=== PATIENT | female | born 1985 | race Caucasian/White ===

== ENCOUNTER 2018-04-25 15:18 | Emergency (ER) | payer MEDICAID ==
[2018-04-25] MEDS ORDERED: 0.9 % SODIUM CHLORIDE 1,000 ML BAG IV ONE (15:27)
--- NOTE | 2018-04-25 15:35 | Emergency Department Record ---
History of Present Illness - General Chief complaint: ENT Stated complaint: DIFFICULTY SWOLLOWING Time Seen by Provider: 04/25/18 15:27 Source: Patient Mode of Arrival: Ambulatory Limitations: No limitations - History of Present Illness Initial comments: 33 yo female presents with a sensation of difficulty with swallowing for about 5 months. The onset has been gradual but progressive. She states over the five months it started with trouble with solid foods and now she feels like she can not swallow solids. She can swallow liquids. No swelling or mass. No fevers. She has a history in the past of Graves Disease that was treated with radiation two years ago. She did not have any issue then after treatment. No history of a prior scope. No history of cancers or tobacco use. No ENT history. She reports her PCP did and US of the neck that only should a nodule that was not a concern. MD complaint: Difficulty swallowing -: Month(s) (5) Location: Throat Severity: Moderate Quality: Other Consistency: Constant Improves with: None Worsens with: Eating - Related Data Home Medications Medication Instructions Recorded Confirmed Last Taken Levothyroxine Sodium [Synthroid] 100 mcg PO DAILY 04/25/18 04/25/18 04/25/18 100 mcg Allergies Allergy/AdvReac Type Severity Reaction Status Date / Time latex Allergy Mild RASH Verified 04/25/18 15:30 Review of Systems Constitutional: Denies: Chills, Fever, Weakness Eyes: Denies: Eye discharge, Eye pain, Vision change ENT: Denies: Congestion, Throat pain Respiratory: Denies: Cough, Dyspnea, Wheezes Cardiovascular: Denies: Chest pain, Palpitations, Syncope Endocrine: Denies: Fatigue Gastrointestinal: Reports: Nausea Genitourinary: Denies: Abnormal menses, Dysuria, Urgency Musculoskeletal: Denies: Arthralgia, Back pain, Myalgia Skin: Denies: Bruising, Change in color, Rash Neurological: Denies: Headache Psychiatric: Denies: Anxiety Hematological/Lymphatic: Denies: Easy bleeding, Easy bruising, Swollen glands Past Medical History - PURCHASER History : 3 Para: 4 Physical Exam - General General Appearance: Alert, Oriented x3, Cooperative, No acute distress Limitations: No limitations - Head Head exam: Atraumatic, Normal inspection - Eye Eye exam: Normal appearance, PERRL. negative: Conjunctival injection, Scleral icterus - ENT ENT exam: Normal exam, Mucous membranes moist, Normal orophraynx. negative: Mucous membranes dry Ear exam: Normal external inspection Nasal Exam: Normal inspection Mouth exam: Normal external inspection, Tongue normal, Other (clear voice). negative: Drooling, Muffled voice, Tongue elevation, Trismus Teeth exam: Normal inspection Throat exam: Normal inspection. negative: Tonsillar erythema, Tonsillomegaly, Tonsillar exudate, L peritonsillar mass - Neck Neck exam: negative: Lymphadenopathy, Tenderness - Respiratory Respiratory exam: Normal lung sounds bilaterally. negative: Respiratory distress - Cardiovascular Cardiovascular Exam: Regular rate, Normal rhythm, Normal heart sounds - GI/Abdominal GI/Abdominal exam: Soft. negative: Tenderness - Rectal Rectal exam: Deferred - exam: Deferred - Neurological Neurological exam: Alert, Oriented X3 - Psychiatric Psychiatric exam: Normal affect, Normal mood - Skin Skin exam: Dry, Intact, Normal color, Warm Course Vital Signs 04/25/18 15:23 Temperature 97.9 F Pulse Rate [ 140 H Pulse Ox Probe] Respiratory 22 Rate Blood Pressure 141/89 [Left Arm] Pulse Ox 99 - Reevaluation(s) Reevaluation #1: 04/25/18 16:03 HR improved to 94 without any intervention. The patient was anxious and tearful on arrival. She is relaxed and calm currently. 04/25/18 16:08 The CBC and the UCG is negative 04/25/18 16:25 BMP reviewed. Glucose 181. Non fasting. 04/25/18 17:[address] of the neck soft tissues is negative. No mass or signs of space occupying mass. Atrophic thyroid The patient was informed of the findings. She is stable for DC. She is instructed to call her PCP tomorrow to assist in arranging her planned GI follow up. She was instructed to continue with a soft mechanical diet in the meantime. Medical Decision Making - Lab Data Result diagrams: 04/25/18 15:55 04/25/18 15:55 Disposition Disposition: Discharge Clinical Impression: Dysphagia Qualifiers: Dysphagia type: unspecified Qualified Code(s): R13.10 - Dysphagia, unspecified Disposition: Home, Self-Care Condition: (1) Good Instructions: Dysphagia (ED) Additional Instructions: Call your family doctor tomorrow for close follow up of your ongoing symptoms Be seen immediately if worse or any new concerns Avoid solid foods that require a lot of chewing like meat or tough foods Forms: Patient Portal Access Time of Disposition: 17:16 Quality - Quality Measures Quality Measures: N/A - Blood Pressure Screening Does Patient Have Any of the Following: No Blood Pressure Classification: Normal BP Reading Systolic Measurement: 106 Diastolic Measurement: 68 Screening for High Blood Pressure: < Normal BP, F/U Not Required > [[id number]]
[2018-04-25 16:01] LABS: BASO % 0.1 % (0-6); EOS % 0.3 % (0-6); GRAN % 79.1 % (47-80); HEMATOCRIT 43.5 % (35.0-47.0); HEMOGLOBIN 14.9 gm/dl (11.6-16.0); LYMPH % 15.2 % (16-45); MEAN CELL VOLUME 90.4 fl (81-97); MEAN CORPUSCULAR HGB CONC 34.3 g/dl (32-36); MEAN PLATELET VOLUME 8.9 fl (7.4-10.4); MONO % 5.3 % (0-9); PLATELET COUNT 301 K/uL (130-400); RED BLOOD COUNT 4.81 M/uL (3.80-5.40); RED CELL DISTRIBUTION WIDTH 11.8 % (11.5-14.5); WHITE BLOOD COUNT W/O DIFF 6.9 K/uL (4.2-12.2)
[2018-04-25 16:16] LABS: BLOOD UREA NITROGEN 10 mg/dL (6-20); CREATININE 0.9 mg/dL (0.5-0.9); EST GLOMERULAR FILTRATION RATE > 60 mL/min
[2018-04-25 16:19] LABS: GLUCOSE,RANDOM 181 mg/dL (74-109)
--- NOTE | 2018-04-27 08:59 | CT SCAN REPORT ---
EXAM: CT SCAN OF THE NECK WITH CONTRAST HISTORY: DIFFICULTY SWALLOWING FOOD OVER THE LAST FIVE MONTHS. HISTORY OF PRIOR GRAVES DISEASE WITH THYROID RADIATION THERAPY, NOW HYPOTHYROID ON SYNTHROID. TECHNIQUE: Axial CT scan of the neck was performed following the intravenous administration of iodated contrast media. Please see the medical record for IV contrast specifics. Comparison: None. FINDINGS: The visualized paranasal sinuses and mastoids appear clear as do the middle ear cavities. The orbits appear unremarkable. No definite parotid or submandibular gland mass identified. The thyroid is difficult to visualize and is presumably quite atrophic given the history of prior thyroid bed radiation. Some normal sized cervical nodes are seen with no definite cervical or superior mediastinal adenopathy identified. The visualized lung apices appear clear. Incidental note is made of a dominant right vertebral artery with a relatively small caliber left vertebral artery that may terminate as a cerebellar branch in the posterior fossa. The epiglottis is of normal size. No distention of the hypopharynx or narrowing of the subglottic airway identified. No prevertebral soft tissue swelling evident. The cervical intervertebral disk spaces are relatively maintained. IMPRESSION: 1. RELATIVELY ATROPHIC APPEARING THYROID. 2. NO DEFINITE SOFT TISSUE MASS OR ADENOPATHY IDENTIFIED IN THE NECK. 3. 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 JOB NUMBER: [id number] MTDD
== END 2018-04-25 17:43 | disposition home or self-care (01) ==
LOC: ER 15:18
DX: R13.10 Dysphagia, unspecified (principal)
CPT/HCPCS: 70491; 80048; 81025; 85025; 99284; J7030